=== PATIENT | male | born 1990 | race Caucasian/White ===

== ENCOUNTER 2017-07-01 23:20 | Emergency (ER) | payer OTHER ==
[~2017-07-01] VITALS: Ht 182.9 cm; Wt 68.0 kg
[~2017-07-01 23:20] MED LIST: Bactrim Ds Tab1 EACH PO; CEPH500 PO; CYCL10 PO; HYDACE5 PO; NAPR500 PO; Phenergan25 M1 PO; RXHYDACE PO
[2017-07-02] MEDS ORDERED: ALBU90OI INH (01:05)
[2017-07-02] MEDS ORDERED: Prednisone20 MG PO (01:05)
== END 2017-07-02 01:53 | disposition home or self-care (01) ==
LOC: ER 23:20
DX: J06.9 Acute upper respiratory infection, unspecified (principal); F17.210 Nicotine dependence, cigarettes, uncomplicated; Z91.09 Other allergy status, other than to drugs and biological substances; Z88.0 Allergy status to penicillin; Z91.018 Allergy to other foods; Z79.51 Long term (current) use of inhaled steroids; Z79.2 Long term (current) use of antibiotics
CPT/HCPCS: 71046; 99283; J1100

== ENCOUNTER 2017-07-02 15:33 | Emergency (ER) | payer OTHER ==
[~2017-07-02] VITALS: Ht 182.9 cm; Wt 68.0 kg
[~2017-07-02 15:33] MED LIST changes: +ALBU90OI INH; +Prednisone20 MG PO
== END 2017-07-02 15:56 | disposition home or self-care (01) ==
LOC: ER 15:33
DX: S05.12XA Contusion of eyeball and orbital tissues, left eye, initial encounter (principal); F17.210 Nicotine dependence, cigarettes, uncomplicated; V49.00XA Driver injured in collision with unspecified motor vehicles in nontraffic accident, initial encounter
CPT/HCPCS: 99283

== ENCOUNTER 2018-08-17 14:55 | Emergency (ER) | payer OTHER ==
[~2018-08-17] VITALS: Ht 185.4 cm; Wt 65.8 kg
[2018-08-17] MEDS ORDERED: IBUP600 PO (15:32)
[2018-08-17] MEDS ORDERED: Ultram50 MG PO (15:32)
== END 2018-08-17 15:51 | disposition home or self-care (01) ==
LOC: ER 14:55
DX: S80.211A Abrasion, right knee, initial encounter (principal); F17.210 Nicotine dependence, cigarettes, uncomplicated; Z88.0 Allergy status to penicillin; Z91.018 Allergy to other foods; Z91.048 Other nonmedicinal substance allergy status; W19.XXXA Unspecified fall, initial encounter
CPT/HCPCS: 73564; 99283-25

== ENCOUNTER 2019-03-08 13:50 | Emergency (ER) | payer OTHER ==
[~2019-03-08] VITALS: Ht 182.9 cm; Wt 63.5 kg
[~2019-03-08 13:50] MED LIST changes: +IBUP600 PO; +Ultram50 MG PO
== END 2019-03-08 15:28 | disposition home or self-care (01) ==
LOC: ER 13:50
DX: S63.502A Unspecified sprain of left wrist, initial encounter (principal); F17.210 Nicotine dependence, cigarettes, uncomplicated; Z91.09 Other allergy status, other than to drugs and biological substances; Z91.018 Allergy to other foods; Z88.0 Allergy status to penicillin; W22.8XXA Striking against or struck by other objects, initial encounter
CPT/HCPCS: 29125; 73110; 99283-25